=== PATIENT | female | born 1940 | race Caucasian/White ===

== ENCOUNTER 2016-09-27 09:49 | Emergency (ER) | payer MEDICARE, OTHER ==
[~2016-09-27] VITALS: Ht 160 cm; Wt 75.7 kg
[2016-09-27] MEDS ORDERED: AMLO10TA2 PO (10:12)
[2016-09-27] MEDS ORDERED: METF1000 PO (10:12)
[2016-09-27] MEDS ORDERED: LISI1TAB8 PO (10:12)
[2016-09-27] MEDS ORDERED: GLYB5TAB6 PO (10:12)
[2016-09-27] MEDS ORDERED: NS IV 500 ML 500 ML IV ONE (10:16)
[2016-09-27 10:29] LABS: BASOPHILS % (AUTO) 0 % (0-10); EOSINOPHILS # (AUTO) 0.1 10^3/uL (0.0-0.3); EOSINOPHILS % (AUTO) 1 % (0-10); LYMPHOCYTES # (AUTO) 1.7 X 10^3 (1.0-4.0); LYMPHOCYTES % (AUTO) 17 % (12-44); MEAN CORPUSCULAR HEMOGLOBIN 31 PG (25-34); MEAN CORPUSCULAR HGB CONC 34 G/DL (32-36); MEAN CORPUSCULAR VOLUME 93 FL (80-99); MEAN PLATELET VOLUME 10.5 FL (7.4-10.4); MONOCYTES # (AUTO) 0.6 X 10^3 (0.0-1.0); MONOCYTES % (AUTO) 6 % (0-12); NEUTROPHILS # (AUTO) 7.5 X 10^3 (1.8-7.8); NEUTROPHILS % (AUTO) 77 % (42-75); PLATELET COUNT 184 10^3/uL (130-400); RED BLOOD COUNT 4.17 10^6/uL (4.35-5.85); RED CELL DISTRIBUTION WIDTH 13.1 % (10.0-14.5); WHITE BLOOD COUNT 9.7 10^3/uL (4.3-11.0)
[2016-09-27] MEDS ORDERED: DEXTROSE 50% 50 ML (IMS) SYR IV ONE (10:30)
[2016-09-27 10:47] LABS: ALBUMIN 4.2 GM/DL (3.2-4.5); BILIRUBIN,TOTAL 0.4 MG/DL (0.1-1.0); CALCIUM 9.9 MG/DL (8.5-10.1); CREATININE SERUM 1.34 MG/DL (0.60-1.30); MAGNESIUM 1.9 MG/DL (1.8-2.4)
[2016-09-27 10:48] LABS: POTASSIUM 5.3 MMOL/L (3.6-5.0)
[2016-09-27 11:11] LABS: BILIRUBIN,URINE NEGATIVE (NEGATIVE); KETONES,URINE NEGATIVE (NEGATIVE); LEUKOCYTE ESTERASE ,URINE NEGATIVE (NEGATIVE); NITRITE,URINE NEGATIVE (NEGATIVE); PH,URINE 6 (5-9); PROTEIN,URINE NEGATIVE (NEGATIVE); UROBILINOGEN,URINE NORMAL (NORMAL)
--- NOTE | 2016-09-27 11:37 | ED General ---
General Chief Complaint: Dizziness/Syncope Stated Complaint: FELL,DIZZINESS Nursing Triage Note: AMBULATED TO ROOM 06 WITH ASSISTANCE SLOWLY. STATES SHE WOKE UP AT 0400 DIZZY. STATES SHE FELL HURTING HER RIGHT KNEE. WHEN SHE FELL AGAINST TWO WINDOWS LEANING UP AGAINST SOMETHING. THE WINDOWS FELL ON HER HEAD. DENIES LOC. Nursing Sepsis Screen: No Definite Risk Source of Information: Patient, EMS Exam Limitations: No Limitations History of Present Illness Time Seen by Provider: 10:07 Initial Comments This 75-year-old woman presents to the emergency room with complaints of dizziness and near syncope that started upon waking this morning. She felt fine when she went to bed at 21:30 last night. When she woke at 04:00 she felt "wobbly" as she ambulated to the bathroom. On her way back she fell to the floor. She had a minor injury to her knee and her elbow. Some windows that were leaning against the wall fell on top of her. She denies any loss of consciousness or significant head injury. She is a diabetic who takes multiple diabetic medications. She has not checked her blood sugar this morning and has not yet eaten. She denies any chest pain, shortness of air, nausea, vomiting, diarrhea, or urinary changes. Her speech was a little slurred at home but is better now. Allergies and Home Medications Allergies Coded Allergies: Penicillins (Verified Adverse Reaction, Unknown, N/V, 09/27/16) lemon (Verified Adverse Reaction, Unknown, N/V, 09/27/16) Home Medications Amlodipine Besylate 10 Mg Tablet, 10 MG PO DAILY, (Reported) Glyburide 5 Mg Tablet, 10 MG PO DAILY, (Reported) Lisinopril/Hydrochlorothiazide 1 Each Tablet, 1 EACH PO BID, (Reported) Metformin HCl 1,000 Mg Tablet, 1,000 MG PO BID, (Reported) Constitutional: weakness EENTM: see HPI Respiratory: no symptoms reported Cardiovascular: no symptoms reported Gastrointestinal: no symptoms reported Genitourinary: no symptoms reported Musculoskeletal: no symptoms reported Skin: no symptoms reported Psychiatric/Neurological: See HPI Past Lvyrvtj-Vhsnhz-Kaevbg Hx Patient Social History Alcohol Use: Denies Use Recreational Drug Use: No Smoking Status: Former Smoker Recent Foreign Travel: No Contact w/Someone Who Travel: No Recent Infectious Disease Expo: No Recent Hopitalizations: No Seasonal Allergies Seasonal Allergies: Yes Surgeries HX Surgeries: Yes (lipoma resection) Surgeries: Breast, Gallbladder Respiratory Hx Respiratory Disorders: No Cardiovascular Hx Cardiac Disorders: Yes Cardiac Disorders: Hypertension Neurological Hx Neurological Disorders: No Reproductive System : No Genitourinary Hx Genitourinary Disorders: No Gastrointestinal Hx Gastrointestinal Disorders: No Musculoskeletal Hx Musculoskeletal Disorders: No Endocrine Hx Endocrine Disorders: No Endocrine Disorders: Diabetes, Non-Insulin dep HEENT HX ENT Disorders: No Cancer Hx Cancer: Yes Cancer: Breast Psychosocial Hx Psychiatric Problems: No Integumentary HX Skin/Integumentary Disorder: No Physical Exam Vital Signs Vital Sign - Last 12Hours 09/27/16 09:53 Temp 98.0 Pulse 79 Resp 16 B/P (MAP) 164/88 Pulse Ox 98 Capillary Refill : Less Than 3 Seconds General Appearance: No Apparent Distress, WD/WN HEENT: PERRL/EOMI, Normal ENT Inspection, Pharynx Normal Neck: Normal Inspection Respiratory: Lungs Clear, Normal Breath Sounds, No Accessory Muscle Use, No Respiratory Distress Cardiovascular: Regular Rate, Rhythm, No Edema, No Murmur Gastrointestinal: Normal Bowel Sounds, Non Tender, Soft Extremity: Non Tender, Other (ecchymosis and abrasion of the right elbow without tenderness) Neurologic/Psychiatric: Alert, Oriented x3, No Motor/Sensory Deficits, Normal Mood/Affect, 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 Norm as Tested Skin: Normal Color, Warm/Dry Progress/Results/Core Measures Results/Orders Lab Results Laboratory Tests Test 09/27/16 10:15 09/27/16 10:20 09/27/16 11:00 09/27/16 11:10 Range/Units Glucometer 58 *L 116 H 70-110 MG/DL White Blood Count 9.7 4.3-11.0 10^3/uL Red Blood Count 4.17 L 4.35-5.85 10^6/uL Hemoglobin 13.0 11.5-16.0 G/DL Hematocrit 39 35-52 % Mean Corpuscular Volume 93 80-99 FL Mean Corpuscular Hemoglobin 31 25-34 PG Mean Corpuscular Hemoglobin Concent 34 32-36 G/DL Red Cell Distribution Width 13.1 10.0-14.5 % Platelet Count 184 130-400 10^3/uL Mean Platelet Volume 10.5 H 7.4-10.4 FL Neutrophils (%) (Auto) 77 H 42-75 % Lymphocytes (%) (Auto) 17 12-44 % Monocytes (%) (Auto) 6 0-12 % Eosinophils (%) (Auto) 1 0-10 % Basophils (%) (Auto) 0 0-10 % Neutrophils # (Auto) 7.5 1.8-7.8 X 10^3 Lymphocytes # (Auto) 1.7 1.0-4.0 X 10^3 Monocytes # (Auto) 0.6 0.0-1.0 X 10^3 Eosinophils # (Auto) 0.1 0.0-0.3 10^3/uL Basophils # (Auto) 0.0 0.0-0.1 10^3/uL Sodium Level 132 L 135-145 MMOL/L Potassium Level 5.3 H 3.6-5.0 MMOL/L Chloride Level 99 98-107 MMOL/L Carbon Dioxide Level 21 21-32 MMOL/L Anion Gap 12 5-14 MMOL/L Blood Urea Nitrogen 29 H 7-18 MG/DL Creatinine 1.34 H 0.60-1.30 MG/DL Estimat Glomerular Filtration Rate 38 BUN/Creatinine Ratio 22 Glucose Level 62 L 70-105 MG/DL Calcium Level 9.9 8.5-10.1 MG/DL Magnesium Level 1.9 1.8-2.4 MG/DL Total Bilirubin 0.4 0.1-1.0 MG/DL Aspartate Amino Transf (AST/SGOT) 19 5-34 U/L Alanine Aminotransferase (ALT/SGPT) 15 0-55 U/L Alkaline Phosphatase 35 L 40-136 U/L Total Protein 7.0 6.4-8.2 GM/DL Albumin 4.2 3.2-4.5 GM/DL Urine Color YELLOW Urine Clarity SLIGHTLY CLOUDY Urine pH 6 5-9 Urine Specific [place] 1.015 L 1.016-1.022 Urine Protein NEGATIVE NEGATIVE Urine Glucose (UA) NEGATIVE NEGATIVE Urine Ketones NEGATIVE NEGATIVE Urine Nitrite NEGATIVE NEGATIVE Urine Bilirubin NEGATIVE NEGATIVE Urine Urobilinogen NORMAL NORMAL MG/DL Urine Leukocyte Esterase NEGATIVE NEGATIVE Urine RBC (Auto) 1+ H NEGATIVE Urine RBC NONE /HPF Urine WBC NONE /HPF Urine Squamous Epithelial Cells 5-10 /HPF Urine Crystals NONE /LPF Urine Bacteria NEGATIVE /HPF Urine Casts NONE /LPF Urine Mucus NEGATIVE /LPF Urine Culture Indicated NO Test 09/27/16 12:08 Range/Units Glucometer 108 70-110 MG/DL My Orders Orders - ARI TEAGUE MD Cbc With Automated Diff (09/27/16 10:16) Comprehensive Metabolic Panel (09/27/16 10:16) Ua Culture If Indicated (09/27/16 10:16) Saline Lock/Iv-Start (09/27/16 10:16) Ns Iv 500 Ml (Sodium Chloride 0.9%) (09/27/16 10:16) Magnesium (09/27/16 10:16) Accucheck Stat ONCE (09/27/16 10:16) Monitor-Rhythm Ecg Trace Only (09/27/16 10:16) D50w (Emergency) Syringe (Dextrose 50% 5 (09/27/16 10:30) General/Regular (09/27/16 Lunch) Accucheck Stat ONCE (09/27/16 11:22) Medications Given in ED Current Medications Medications Dose Ordered Sig/Lena Route Start Time Stop Time Status Last Admin Dose Admin Dextrose 25 ml ONCE ONCE IV 09/27/16 10:30 09/27/16 10:31 DC 09/27/16 10:28 25 ML Sodium Chloride 500 ml @ 0 mls/hr Q0M ONCE IV 09/27/16 10:16 09/27/16 10:20 DC 09/27/16 10:30 500 MLS/HR Vital Signs/I&O Vital Sign - Last 12Hours 09/27/16 09/27/16 09:53 12:20 Temp 98.0 Pulse 79 67 Resp 16 18 B/P (MAP) 164/88 Pulse Ox 98 98 Blood Pressure Mean: 113 Point of Care Testing Finger Stick Blood Glucose: 116 Blood Glucose Action Taken: NOTIFIED Progress Note #1: Time: 11:03 Progress Note Patient is feeling significantly improved after 250 mL of normal saline and 25 g of D50. She is minimally dizzy now. She was able to ambulate to the restroom with nursing at her side. We will allow her to eat and finish her IV fluids. We will reassess blood sugar and functional status at that time to determine disposition. Creatinine is mildly elevated with no baseline to compare. Potassium is slightly elevated as well. Progress Note #2: Progress Note Patient completed her IV fluids. She ate and drank and felt much better. She requested discharge. Fingerstick blood sugar prior to dismissal was 106. Departure Impression Impression: Primary Impression: Hypoglycemia Additional Impressions: Near syncope Fall on same level Qualified Codes: W18.30XA - Fall on same level, unspecified, initial encounter Disposition: HOME, SELF-CARE Condition: Improved Departure-Patient Inst. Decision time for Depature: 12:12 Referrals: BRICE BAEZ DO (PCP) Primary Care Physician FREYA GUNN (Family) Primary Care Physician Patient Instructions: HYPOGLYCEMIA Add. Discharge Instructions: Eat 3 well-balanced meals per day. Stop glyburide until you can discuss further with your primary care provider. Continue metformin. Follow-up with your primary care provider as soon as possible. Obtain a glucometer and check your blood sugars 4 times a day, once in the morning before eating and then 2 hours after each meal. Record those blood sugars and bring them to your follow-up appointment. Return to the ER if you have worsening symptoms. All discharge instructions reviewed with patient and/or family. Voiced understanding. Copy Copies To 1: BRICE BAEZ JOSHUA T MD Sep 27, 2016 11:37
[2016-09-27 12:20] VITALS: BP 135/67
== END 2016-09-27 12:22 | disposition home or self-care (01) ==
LOC: EDUNIT# 09:49 → ER 09:53
DX: E11.649 Type 2 diabetes mellitus with hypoglycemia without coma (principal); I10 Essential (primary) hypertension; Z98.890 Other specified postprocedural states; Z87.891 Personal history of nicotine dependence; Z79.84 Long term (current) use of oral hypoglycemic drugs
CPT/HCPCS: 36415; 80053; 81000; 82962; 83735; 85025; 93041; 96374

== ENCOUNTER 2018-12-25 12:44 | Emergency (ER) | payer MEDICARE ==
[~2018-12-25] VITALS: Ht 162.5 cm; Wt 76.1 kg
[~2018-12-25 12:44] MED LIST: AMLO10TA7 PO; GLYB5TAB6 PO; LISI1TAB8 PO; METF-399 PO
--- NOTE | 2018-12-25 13:24 | NUR ---
NOTIFIED OF BUSY ER WITH LONG WAIT TIME.
--- NOTE | 2018-12-25 15:01 | NUR ---
PT FAMILY UPSET ET STATES THEY HAVE BEEN HERE THREE HOURS (PT HAS BEEN HERE TWO) AND WANTING TO KNOW WHEN SHE WILL BE BACK. NOTIFIED OF BUSY ER WITH CRITICAL PATIENTS. FAMILY QUESTIONED WHY PEOPLE HAVE BEEN BACK BROUGHT BEFORE HER. EXPLAINED THE TRIAGE PROCESS WITH THE DIFFERENCE IN FAST TRACK AND ER AND NOTIFIED HIM PT WOULD BENEFIT FROM ER. FAMILY STILL UPSET. NOTIFED HIM OF CRICITICAL PT'S IN THE ER AND SHE WOULD BE CALLED BACK SOON A NURSE IS AVIALABLE.
[2018-12-25 16:30] LABS: BILIRUBIN,URINE NEGATIVE (NEGATIVE); CLARITY,URINE SLIGHTLY CLOUDY; COLOR,URINE YELLOW; GLUCOSE, URINE (UA) NEGATIVE (NEGATIVE); KETONES,URINE NEGATIVE (NEGATIVE); LEUKOCYTE ESTERASE ,URINE NEGATIVE (NEGATIVE); NITRITE,URINE NEGATIVE (NEGATIVE); PH,URINE 8 (5-9); PROTEIN,URINE 3+ (NEGATIVE)
--- NOTE | 2018-12-25 16:32 | NUR ---
LUIS ORTIZ WITH VAGINAL EXAM AT THIS TIME
--- NOTE | 2018-12-25 16:43 | ED GU-Female ---
General Chief Complaint: LOSS PREVENTION ASSOCIATE Stated Complaint: VAGINAL BLEEDING;PAIN Nursing Triage Note: AMBULATED TO TRIAGE ET STATES SHE HAS A "MAN THING" IN HER VAGINAL AREA THAT "BUSTED" TODAY AND IS BLEEDING. Nursing Sepsis Screen: No Definite Risk History of Present Illness Date Seen by Provider: Dec 25, 2018 Time Seen by Provider: 14:00 Initial Comments 78-year-old female presents and states that she has a mass in her perineal region that she describes as a "testicle that ruptured and bled all over her bathroom." She denies having any prolapse or hemorrhoids. Symptoms of been present for approximately 2-3 weeks. She saw Darlene Gunn her COAL CONVEYOR OPERATOR approximately 2 weeks ago but did not tell her about the symptoms. Timing/Duration: intermittent Severity/Quality: moderate Location: vaginal Sexual [place] History: not active (denies sexual activity for at least 1-2 decades) Associated Symptoms: dysuria; No loss of bladder control; mass; No nausea/vomiting, No nocturia, No polyuria, No urinary frequency Allergies and Home Medications Allergies Coded Allergies: Penicillins (Verified Adverse Reaction, Unknown, N/V, 09/27/16) lemon (Verified Adverse Reaction, Unknown, N/V, 09/27/16) Home Medications Amlodipine Besylate 10 Mg Tablet, 10 MG PO DAILY, (Reported) Glyburide 5 Mg Tablet, 10 MG PO DAILY, (Reported) Lisinopril/Hydrochlorothiazide 1 Each Tablet, 1 EACH PO BID, (Reported) Metformin HCl 1,000 Mg Tablet, 1,000 MG PO BID, (Reported) Patient Home Medication List Home Medication List Reviewed: Yes Review of Systems Review of Systems Constitutional: no symptoms reported, see HPI Genitourinary: see HPI, other (mass or prolapse in perineal region. ) All Other Systemes Reviewed Negative Unless Noted: Yes Past Wiuuazw-Rrbfcp-Vdmiac Hx Past Med/Social Hx: Reviewed Nursing Past Med/Soc Hx Patient Social History Recent Foreign Travel: No Contact w/Someone Who Travel: No Recent Infectious Disease Expo: No Recent Hopitalizations: No Seasonal Allergies Seasonal Allergies: Yes Past Medical History Surgeries: Yes (LEFT BREAST MASTECTOMY, FATTY TUMOR REMOVED. ) Breast, Gallbladder Respiratory: No Cardiac: Yes Hypertension Neurological: No Genitourinary: No Gastrointestinal: No Musculoskeletal: No Endocrine: Yes Diabetes, Non-Insulin dep HEENT: No Cancer: Yes Breast Psychosocial: No Physical Exam Vital Signs Vital Signs - First Documented 12/25/18 13:24 Temp 36.3 Pulse 102 Resp 16 B/P (MAP) 188/99 (128) Pulse Ox 97 O2 Delivery Room Air Capillary Refill : Less Than 3 Seconds Height, Weight, BMI Height: 5'3.00" Weight: 167lbs. oz. 75.308149ws; 28.00 BMI Method:Stated General Appearance: WD/WN, no apparent distress Cardiovascular: normal peripheral pulses, regular rate, rhythm Respiratory: chest non-tender, lungs clear, normal breath sounds Gastrointestinal: normal bowel sounds, non tender, soft Pelvic: lesions (Friable and abnormal growth of tissue from 12-3 o'clock. No active bleeding. Trace blood in vaginal vault. No prolaps. ); No tender w/ cervical motion; vaginal bleeding Neurologic/Psychiatric: no motor/sensory deficits, alert, normal mood/affect, oriented x 3 Skin: normal color, warm/dry Progress/Results/Core Measures Suspected Sepsis Recent Fever Within 48 Hours: No Infection Criteria Present: Suspected New Infection New/Unexplained Altered Menta: No Sepsis Screen: No Definite Risk SIRS Temperature: Pulse: 102 Respiratory Rate: 16 Blood Pressure 188 /99 Mean: 128 Results/Orders Lab Results Laboratory Tests Test 12/25/18 15:53 Range/Units Urine Color YELLOW Urine Clarity SLIGHTLY CLOUDY Urine pH 8 5-9 Urine Specific [place] 1.015 L 1.016-1.022 Urine Protein 3+ H NEGATIVE Urine Glucose (UA) NEGATIVE NEGATIVE Urine Ketones NEGATIVE NEGATIVE Urine Nitrite NEGATIVE NEGATIVE Urine Bilirubin NEGATIVE NEGATIVE Urine Urobilinogen NORMAL NORMAL MG/DL Urine Leukocyte Esterase NEGATIVE NEGATIVE Urine RBC (Auto) 5+ H NEGATIVE Urine RBC 50-100 H /HPF Urine WBC NONE /HPF Urine Squamous Epithelial Cells 0-2 /HPF Urine Crystals PRESENT H /LPF Urine Triple Phosphate Crystals FEW H /LPF Urine Amorphous Sediment LARGE FLOYD PHOSPHATE H /LPF Urine Bacteria FEW H /HPF Urine Casts NONE /LPF Urine Mucus NEGATIVE /LPF Urine Culture Indicated NO My Orders Orders - WILEY ORTIZ Ua Culture If Indicated (12/25/18 16:25) Vital Signs/I&O 12/25/18 12/25/18 13:24 16:56 Temp 36.3 36.3 Pulse 102 102 Resp 16 16 B/P (MAP) 188/99 (128) 176/92 (128) Pulse Ox 97 98 O2 Delivery Room Air Room Air Capillary Refill : Less Than 3 Seconds Blood Pressure Mean: 128 POS Progress Note : Time: 14:00 Progress Note Patient seen and evaluated, will get UA. 1640 patient seen and evaluated. Discharge instructions and return precautions with her COAL CONVEYOR OPERATOR discussed at length. Departure Impression Primary Impression: Vaginal bleeding Additional Impression: Cervical dysplasia Disposition: 01 HOME, SELF-CARE Condition: Improved Departure-Patient Inst. Decision time for Depature: 16:40 Referrals: BRICE BAEZ DO (PCP) Primary Care Physician DARLENE GUNN (Family) Primary Care Physician Patient Instructions: Cervical Dysplasia (DC), Vaginal Discharge in Adults Add. Discharge Instructions: Use a pad for vaginal bleeding Follow up with Darlene Gunn APRN 8:00 am on Dec 30. You may alternate between Tylenol 650 mg and ibuprofen 600 mg every 4 hours for pain. Return to Emergency Dept, as needed for new, urgent health care problems All discharge instructions reviewed with patient and/or family. Voiced under standing. Copy Copies To 1: BRICE BAEZ AMY ARNP Dec 25, 2018 16:43 POS
[2018-12-25 16:47] LABS: AMORPHOUS SEDIMENT,UR LARGE AMOR PHOSPHATE /LPF; BACTERIA,URINE FEW /HPF; RBC,URINE 50-100 /HPF; SQUAMOUS EPITHELIAL CELL,UR 0-2 /HPF; TRIPLE PHOSPHATE CRYSTAL,UR FEW /LPF
[2018-12-25 16:56] VITALS: BP 176/92
== END 2018-12-25 16:56 | disposition home or self-care (01) ==
LOC: EDUNIT# 12:44 → ER 12:45
DX: N93.9 Abnormal uterine and vaginal bleeding, unspecified (principal); N87.9 Dysplasia of cervix uteri, unspecified; I10 Essential (primary) hypertension; E11.9 Type 2 diabetes mellitus without complications; Z85.3 Personal history of malignant neoplasm of breast; Z88.0 Allergy status to penicillin
CPT/HCPCS: 81000; 99282

== ENCOUNTER 2019-03-07 10:06 | Emergency (ER) | payer MEDICARE ==
[~2019-03-07] VITALS: Ht 160 cm; Wt 58.9 kg
[~2019-03-07 10:06] MED LIST changes: +LISI1TAB25 PO; -LISI1TAB8 PO
--- NOTE | 2019-03-07 10:49 | ED General ---
General Chief Complaint: Cardiac/General Problems Stated Complaint: HYPERTENSION Nursing Triage Note: SENT DOWN FROM THE [facility] WITH HYPERTENSION. Nursing Sepsis Screen: No Definite Risk Source of Information: Patient Exam Limitations: No Limitations History of Present Illness Date Seen by Provider: Mar 07, 2019 Time Seen by Provider: 10:30 Initial Comments The patient presents to ER by private conveyance with her granddaughter in law and grandson from the women[facility] clinic on second floor with chief complaint that her blood pressure was high at 200/100. Granddaughter says is been going on for the past several weeks that they've been getting involved in she does not take any blood pressure medicines and fired her primary care provider, Darlene Gunn when it was suggested that she needed [facility] care because she was nonadherent to therapy. The patient says she is supposed to be on glimepiride and no other medications. She has difficulty giving any clear history and uses lots of prone wound and cannot member the names of things. She does not member the name of her current provider. Her granddaughter states that she sees OPAL Jackson at [facility] now and gets her medications from a different pharmacy but the last time she had anything filled was in February 2018 and it was glimepiride. She was diagnosed with UTI over 2 weeks ago and was put on a 10 day course of antibiotics but still has over half of the course in the bottle at home. She did not find any other medications in the house today. She has a history of left mastectomy, hysterectomy and was up getting a pessary replaced today on [facility]. The patient does not endorse any chest pain dysuria shortness of breath. Family says that she walked in under her own power without any wheezing or shortness of breath. No history of lung disease. She does not smoke cigarettes. Allergies and Home Medications Allergies Coded Allergies: Penicillins (Verified Adverse Reaction, Unknown, N/V, 09/27/16) lemon (Verified Adverse Reaction, Unknown, N/V, 09/27/16) Home Medications Amlodipine Besylate 10 Mg Tablet, 10 MG PO DAILY, (Reported) Glyburide 5 Mg Tablet, 10 MG PO DAILY, (Reported) Lisinopril/Hydrochlorothiazide 1 Each Tablet, 1 EACH PO BID, (Reported) Metformin HCl 1,000 Mg Tablet, 1,000 MG PO BID, (Reported) Patient Home Medication List Home Medication List Reviewed: Yes Review of Systems Review of Systems Constitutional: No chills, No diaphoresis EENTM: No ear discharge, No ear pain Respiratory: No cough, No short of breath Cardiovascular: No chest pain, No edema Gastrointestinal: No abdominal pain, No constipation, No diarrhea, No nausea Genitourinary: No discharge, No dysuria : No Musculoskeletal: No back pain, No joint pain All Other Systems Reviewed Negative Unless Noted: Yes Past Lsztewo-Rekcey-Fuvfis Hx Patient Social History Alcohol Use: Denies Use Recreational Drug Use: No Smoking Status: Former Smoker 2nd Hand Smoke Exposure: No Recent Foreign Travel: No Contact w/Someone Who Travel: No Recent Infectious Disease Expo: No Recent Hopitalizations: No Seasonal Allergies Seasonal Allergies: Yes Past Medical History Surgeries: Yes (LEFT BREAST MASTECTOMY, FATTY TUMOR REMOVED. ) Breast, Gallbladder Respiratory: No Cardiac: Yes Hypertension Neurological: No Genitourinary: No Gastrointestinal: No Musculoskeletal: No Endocrine: Yes Diabetes, Non-Insulin dep HEENT: No Cancer: Yes Breast Psychosocial: No Integumentary: No Blood Disorders: No Physical Exam Vital Signs Vital Signs - First Documented 03/07/19 10:08 Temp 37.0 Pulse 78 Resp 16 B/P (MAP) 219/94 (135) Pulse Ox 96 O2 Delivery Room Air Capillary Refill : Less Than 3 Seconds Height, Weight, BMI Height: 5'3.00" Weight: 167lbs. oz. 75.097646gu; 23.00 BMI Method:Stated General Appearance: No Apparent Distress, Obese Eyes: Bilateral Eye Normal Inspection, Bilateral Eye PERRL, Bilateral Eye EOMI HEENT: PERRL/EOMI, TMs Normal, Normal ENT Inspection, Pharynx Normal, Moist Mucous Membranes Neck: Full Range of Motion, Normal Inspection Respiratory: Lungs Clear, Normal Breath Sounds, No Accessory Muscle Use, No Respiratory Distress Cardiovascular: Regular Rate, Rhythm, No Edema, Normal Peripheral Pulses Gastrointestinal: Normal Bowel Sounds, Non Tender, Soft Extremity: Normal Capillary Refill, Normal Inspection Neurologic/Psychiatric: Alert, Other (oriented to person place but not time. Word searching, poor short-term memory related to her medical care and name of procedures medicines.) Skin: Normal Color, Warm/Dry Progress/Results/Core Measures Suspected Sepsis Recent Fever Within 48 Hours: No Infection Criteria Present: None New/Unexplained Altered Menta: No Sepsis Screen: No Definite Risk SIRS Temperature: Pulse: 78 Respiratory Rate: 16 Laboratory Tests 03/07/19 10:45: White Blood Count 4.8 Blood Pressure 219 /94 Mean: 135 Laboratory Tests 03/07/19 10:45: Creatinine 1.44H, Platelet Count 142, Total Bilirubin 0.2 Results/Orders Lab Results Laboratory Tests Test 03/07/19 10:45 03/07/19 11:05 Range/Units White Blood Count 4.8 4.3-11.0 10^3/uL Red Blood Count 4.27 L 4.35-5.85 10^6/uL Hemoglobin 13.1 11.5-16.0 G/DL Hematocrit 40 35-52 % Mean Corpuscular Volume 94 80-99 FL Mean Corpuscular Hemoglobin 31 25-34 PG Mean Corpuscular Hemoglobin Concent 33 32-36 G/DL Red Cell Distribution Width 13.6 10.0-14.5 % Platelet Count 142 130-400 10^3/uL Mean Platelet Volume 11.4 H 7.4-10.4 FL Neutrophils (%) (Auto) 67 42-75 % Lymphocytes (%) (Auto) 24 12-44 % Monocytes (%) (Auto) 8 0-12 % Eosinophils (%) (Auto) 1 0-10 % Basophils (%) (Auto) 0 0-10 % Neutrophils # (Auto) 3.2 1.8-7.8 X 10^3 Lymphocytes # (Auto) 1.2 1.0-4.0 X 10^3 Monocytes # (Auto) 0.4 0.0-1.0 X 10^3 Eosinophils # (Auto) 0.1 0.0-0.3 10^3/uL Basophils # (Auto) 0.0 0.0-0.1 10^3/uL Sodium Level 139 135-145 MMOL/L Potassium Level 4.5 3.6-5.0 MMOL/L Chloride Level 106 98-107 MMOL/L Carbon Dioxide Level 23 21-32 MMOL/L Anion Gap 10 5-14 MMOL/L Blood Urea Nitrogen 24 H 7-18 MG/DL Creatinine 1.44 H 0.60-1.30 MG/DL Estimat Glomerular Filtration Rate 35 BUN/Creatinine Ratio 17 Glucose Level 253 H 70-105 MG/DL Calcium Level 8.9 8.5-10.1 MG/DL Corrected Calcium 9.0 8.5-10.1 MG/DL Total Bilirubin 0.2 0.1-1.0 MG/DL Aspartate Amino Transf (AST/SGOT) 16 5-34 U/L Alanine Aminotransferase (ALT/SGPT) 16 0-55 U/L Alkaline Phosphatase 58 40-136 U/L Troponin I < 0.028 <0.028 NG/ML B-Type Natriuretic Peptide 15.7 <100.0 PG/ML Total Protein 6.5 6.4-8.2 GM/DL Albumin 3.9 3.2-4.5 GM/DL Urine Color YELLOW Urine Clarity SL CLOUDY Urine pH 5.0 5-9 Urine Specific [place] 1.020 1.016-1.022 Urine Protein 2+ H NEGATIVE Urine Glucose (UA) 2+ H NEGATIVE Urine Ketones NEGATIVE NEGATIVE Urine Nitrite NEGATIVE NEGATIVE Urine Bilirubin NEGATIVE NEGATIVE Urine Urobilinogen 0.2 < = 1.0 MG/DL Urine Leukocyte Esterase NEGATIVE NEGATIVE Urine RBC (Auto) NEGATIVE NEGATIVE Urine RBC NONE /HPF Urine WBC NONE /HPF Urine Squamous Epithelial Cells 5-10 /HPF Urine Crystals NONE /LPF Urine Bacteria NEGATIVE /HPF Urine Casts NONE /LPF Urine Mucus NEGATIVE /LPF Urine Culture Indicated NO My Orders Orders - AC,CARMELO J Ekg Tracing (03/07/19 10:18) Continuous Ekg Monitoring (03/07/19 10:18) Chest 1 View, Ap/Pa Only (03/07/19 10:39) Ct Head Wo (03/07/19 10:39) Ua Culture If Indicated (03/07/19 10:39) Cbc With Automated Diff (03/07/19 10:39) Comprehensive Metabolic Panel (03/07/19 10:39) Troponin I (03/07/19 10:39) BNP (03/07/19 10:39) Vital Signs/I&O 03/07/19 10:08 Temp 37.0 Pulse 78 Resp 16 B/P (MAP) 219/94 (135) Pulse Ox 96 O2 Delivery Room Air Capillary Refill : Less Than 3 Seconds Blood Pressure Mean: 135 Progress Note #1: Time: 10:56 Progress Note Patient appears to have some modest dementia versus acute delirium. Based on the story she's telling me about her previous provider wanting her to go into convalescent care I would suspect is been going on for a while. The fact that she's not been on any medications since February with the exception of glimepiride also makes this more likely dementia than just an acute delirium however she did recently have a UTI so we'll check some labs as well as an EKG and troponin. We'll watch her blood pressure comes down on its own and if not we can give her an appropriate blood pressure medicine the slowly lower it over the next few days to weeks. Progress Note #2: Time: 11:54 Progress Note The patient is asymptomatic her blood pressure still elevated. Her labs and initial workup were unremarkable with the exception of elevated blood sugar, blood pressure and a calcified lesion in her brain. Her family is not aware of this lesion. We have instructed them to get follow-up with T[facility] Katz for MRI of the brain with and without IV contrast as well as we will start her on amlodipine 5 mg daily. We have encouraged her to continue taking her sulfonylurea for her blood sugar and follow-up with [facility] to discuss appropriate management of diabetes. The patient is not able to perform teach back in front of her family in order to demonstrate she is not able to care for herself. Family says she lives in independent living center with her son and b etween the granddaughter who is the POA and son and they will make sure that she goes to appointments and takes her medications. Previous visit she was here for vaginal bleeding and unusual appearing cervix. Family is not aware of this and does not know she's had appropriate workup. We will encourage on follow-up with primary care to explore this. ECG Initial ECG Impression Date: Mar 07, 2019 Initial ECG Impression Time: 10:22 Initial ECG Rate: 59 Initial ECG Rhythm: Normal Sinus Initial ECG Intervals: Normal Initial ECG Impression: Normal, Nonspecific Changes Comment No acute ST elevation or depression. Normal sinus rhythm Diagnostic Imaging Diagonstic Imaging: Xray Plain Films/CT/US/NM/MRI: chest (1v) Comments NAME: BRENDAN GATES [facility] REC#: [id number] PT STATUS: REG ER : 1940 PHYSICIAN: CARMELO SHEN MD ADMIT DATE: 03/07/19/ER Draft Date of Exam:03/07/19 CHEST 1 VIEW, AP/PA ONLY INDICATION: Hypertension. TECHNIQUE: Single frontal view of the chest. COMPARISON: None FINDINGS: The lung volumes are normal. No focal consolidation is seen. No large pleural effusion or pneumothorax is seen. The cardiomediastinal silhouette is normal in size and contour. No acute osseous abnormality is seen. IMPRESSION: No acute pulmonary abnormality seen. Dictated on workstation # [id number] Dict: 03/07/19 1126 Trans: 03/07/19 113 Interpreted by: CHASE NORMAN MD Electronically signed by: Reviewed: Reviewed by Me Diagonstic Imaging: CT (c/o) Plain Films/CT/US/NM/MRI: head Comments [facility] [place] NAME: BRENDAN GATES [facility] REC#: [id number] PT STATUS: REG ER : 1940 PHYSICIAN: CARMELO SHEN MD ADMIT DATE: 03/07/19/ER Draft Date of Exam:03/07/19 CT HEAD WO PROCEDURE: CT head without contrast. TECHNIQUE: Multiple contiguous axial images were obtained through the brain without the use of intravenous contrast. Auto Exposure Controls were utilized during the CT exam to meet ALARA standards for radiation dose reduction. INDICATION: Confusion. Altered mental status. COMPARISON: None. FINDINGS: Partially calcified extra-axial mass overlying the left frontal lobe measures up to 1.9 cm. No significant mass effect. No intracranial hemorrhage, hydrocephalus or extra-axial fluid collections. No CT evidence of a territorial infarction. Moderate to advanced generalized cerebral and cerebellar parenchymal volume loss. Osseous structures are intact. The visualized paranasal sinuses and mastoids are clear. IMPRESSION: 1. No acute intracranial CT findings. 2. Partially calcified extra-axial mass overlying the left frontal lobe likely represents a benign meningioma. Recommend further evaluation with nonemergent MRI without and with IV contrast. Dictated on workstation # [id number] Dict: 03/07/19 1124 Trans: 03/07/191129 Interpreted by: JESS LOUIS MD Electronically signed by: Reviewed: Reviewed by Me Departure Impression Primary Impression: Hypertension Qualified Codes: I10 - Essential (primary) hypertension Additional Impressions: Brain lesion History of vaginal bleeding History of headache Disposition: HOME, SELF-CARE Condition: Stable (ERASED) Departure-Patient Inst. Decision time for Depature: 11:56 Referrals: BRICE BAEZ DO (PCP) Primary Care Physician DARLENE GUNN (Family) Primary Care Physician Patient Instructions: Medicines for High Blood Pressure, Brain Tumor, Adult (DC) Add. Discharge Instructions: Continue taking your diabetes medications as prescribed. Start taking amlodipine 5 mg once daily and plan follow-up in the next 1-2 weeks with your primary care doctor to discuss your blood pressure. You have a lesion in your brain seen on CT scan that needs to be further characterized with an MRI. Your primary care provider can set this up for you outpatient in the next couple weeks. You should also discuss with your primary care provider whether you had appropriate workup for the vaginal bleeding and concerning cervical appearance noted in previous ER visits on 12/25/18. Communication was made with your primary care provider but since you are no longer following with Darlene Gunn this needs to be brought up with your new provider. Return to the ER if he started to have chest pain, shortness of breath or other worrisome symptoms. All discharge instructions reviewed with patient and/or family. Voiced understa nding. Scripts Amlodipine Besylate (Amlodipine Besylate) 5 Mg Tablet 5 MG PO DAILY for 30 Days, #30 TAB 0 Refills Prov: CARMELO SHEN 03/07/19 CARMELO SHEN Mar 07, 2019 10:49
--- NOTE | 2019-03-07 10:50 | NUR ---
UP TO COMMODE.
[2019-03-07 10:53] LABS: BASOPHILS % (AUTO) 0 % (0-10); EOSINOPHILS # (AUTO) 0.1 10^3/uL (0.0-0.3); EOSINOPHILS % (AUTO) 1 % (0-10); HEMATOCRIT 40 % (35-52); HEMOGLOBIN 13.1 G/DL (11.5-16.0); LYMPHOCYTES # (AUTO) 1.2 X 10^3 (1.0-4.0); LYMPHOCYTES % (AUTO) 24 % (12-44); MEAN CORPUSCULAR HEMOGLOBIN 31 PG (25-34); MEAN CORPUSCULAR HGB CONC 33 G/DL (32-36); MEAN CORPUSCULAR VOLUME 94 FL (80-99); MEAN PLATELET VOLUME 11.4 FL (7.4-10.4); MONOCYTES # (AUTO) 0.4 X 10^3 (0.0-1.0); MONOCYTES % (AUTO) 8 % (0-12); NEUTROPHILS # (AUTO) 3.2 X 10^3 (1.8-7.8); NEUTROPHILS % (AUTO) 67 % (42-75); PLATELET COUNT 142 10^3/uL (130-400); RED CELL DISTRIBUTION WIDTH 13.6 % (10.0-14.5); WHITE BLOOD COUNT 4.8 10^3/uL (4.3-11.0)
[2019-03-07 11:12] LABS: BILIRUBIN,URINE NEGATIVE (NEGATIVE); CLARITY,URINE SL CLOUDY; COLOR,URINE YELLOW; GLUCOSE, URINE (UA) 2+ (NEGATIVE); KETONES,URINE NEGATIVE (NEGATIVE); LEUKOCYTE ESTERASE ,URINE NEGATIVE (NEGATIVE); NITRITE,URINE NEGATIVE (NEGATIVE); PROTEIN,URINE 2+ (NEGATIVE)
[2019-03-07 11:12] LABS: ALANINE AMINOTRANSFERASE 16 U/L (0-55); ALBUMIN 3.9 GM/DL (3.2-4.5); ALKALINE PHOSPHATASE 58 U/L (40-136); BILIRUBIN,TOTAL 0.2 MG/DL (0.1-1.0); BUN/CREATININE RATIO 17; CALCIUM 8.9 MG/DL (8.5-10.1); CARBON DIOXIDE 23 MMOL/L (21-32); CHLORIDE 106 MMOL/L (98-107); CREATININE SERUM 1.44 MG/DL (0.60-1.30); GFR ESTIMATED 35; GLUCOSE 253 MG/DL (70-105); POTASSIUM 4.5 MMOL/L (3.6-5.0); SODIUM 139 MMOL/L (135-145); TOTAL PROTEIN 6.5 GM/DL (6.4-8.2)
[2019-03-07 11:19] LABS: BACTERIA,URINE NEGATIVE /HPF
--- NOTE | 2019-03-07 11:30 | Diagnostic Imaging Report ---
PROCEDURE: CT head without contrast. TECHNIQUE: Multiple contiguous axial images were obtained through the brain without the use of intravenous contrast. Auto Exposure Controls were utilized during the CT exam to meet ALARA standards for radiation dose reduction. INDICATION: Confusion. Altered mental status. COMPARISON: None. FINDINGS: Partially calcified extra-axial mass overlying the left frontal lobe measures up to 1.9 cm. No significant mass effect. No intracranial hemorrhage, hydrocephalus or extra-axial fluid collections. No CT evidence of a territorial infarction. Moderate to advanced generalized cerebral and cerebellar parenchymal volume loss. Osseous structures are intact. The visualized paranasal sinuses and mastoids are clear. IMPRESSION: 1. No acute intracranial CT findings. 2. Partially calcified extra-axial mass overlying the left frontal lobe likely represents a benign meningioma. Recommend further evaluation with nonemergent MRI without and with IV contrast. Dictated by: Dictated on workstation # [id number]
--- NOTE | 2019-03-07 11:31 | Diagnostic Imaging Report ---
INDICATION: Hypertension. TECHNIQUE: Single frontal view of the chest. COMPARISON: None FINDINGS: The lung volumes are normal. No focal consolidation is seen. No large pleural effusion or pneumothorax is seen. The cardiomediastinal silhouette is normal in size and contour. No acute osseous abnormality is seen. IMPRESSION: No acute pulmonary abnormality seen. Dictated by: Dictated on workstation # [id number]
[2019-03-07] MEDS ORDERED: AMLO5TAB9 PO (12:01)
[2019-03-07 12:08] VITALS: BP 236/98
== END 2019-03-07 12:08 | disposition home or self-care (01) ==
LOC: EDUNIT# 10:06 → ER 10:07
DX: I10 Essential (primary) hypertension (principal); E11.9 Type 2 diabetes mellitus without complications; G93.9 Disorder of brain, unspecified; Z85.3 Personal history of malignant neoplasm of breast; Z90.710 Acquired absence of both cervix and uterus; Z88.0 Allergy status to penicillin; Z79.84 Long term (current) use of oral hypoglycemic drugs; Z87.891 Personal history of nicotine dependence; Z87.42 Personal history of other diseases of the female genital tract; Z86.69 Personal history of other diseases of the nervous system and sense organs
CPT/HCPCS: 36415; 70450; 71045; 80053; 81000; 83880; 84484; 85025; 93005

== ENCOUNTER 2019-05-08 09:54 | Outpatient (CLI) | payer MEDICARE ==
[~2019-05-08] VITALS: Ht 160 cm; Wt 71.5 kg
[~2019-05-08 09:54] MED LIST changes: +AMLO5TAB9 PO
[2019-05-08 10:51] LABS: BASOPHILS % (AUTO) 0 % (0-10); EOSINOPHILS # (AUTO) 0.2 10^3/uL (0.0-0.3); EOSINOPHILS % (AUTO) 3 % (0-10); HEMATOCRIT 44 % (35-52); HEMOGLOBIN 14.4 G/DL (11.5-16.0); LYMPHOCYTES # (AUTO) 1.9 X 10^3 (1.0-4.0); LYMPHOCYTES % (AUTO) 32 % (12-44); MEAN CORPUSCULAR HEMOGLOBIN 30 PG (25-34); MEAN CORPUSCULAR HGB CONC 33 G/DL (32-36); MEAN CORPUSCULAR VOLUME 91 FL (80-99); MEAN PLATELET VOLUME 11.4 FL (7.4-10.4); MONOCYTES # (AUTO) 0.4 X 10^3 (0.0-1.0); MONOCYTES % (AUTO) 7 % (0-12); NEUTROPHILS # (AUTO) 3.4 X 10^3 (1.8-7.8); NEUTROPHILS % (AUTO) 58 % (42-75); PLATELET COUNT 138 10^3/uL (130-400); RED CELL DISTRIBUTION WIDTH 13.5 % (10.0-14.5); WHITE BLOOD COUNT 5.8 10^3/uL (4.3-11.0)
[2019-05-08 10:52] LABS: BILIRUBIN,URINE NEGATIVE (NEGATIVE); CLARITY,URINE CLEAR; COLOR,URINE YELLOW; GLUCOSE, URINE (UA) 1+ (NEGATIVE); KETONES,URINE NEGATIVE (NEGATIVE); LEUKOCYTE ESTERASE ,URINE 1+ (NEGATIVE); NITRITE,URINE NEGATIVE (NEGATIVE); PROTEIN,URINE 1+ (NEGATIVE)
[2019-05-08] MEDS ORDERED: HYDR25TA4 PO (11:05)
[2019-05-08] MEDS ORDERED: AMLO5TAB9 PO (11:05)
[2019-05-08 11:06] VITALS: BP 151/91
[2019-05-08 11:11] LABS: BACTERIA,URINE NEGATIVE /HPF; WBC,URINE 0-2 /HPF
== END 2019-05-08 10:50 | disposition home or self-care (01) ==
LOC: PREOP 09:54
PROVIDERS: ATTEND Obstetrics & Gynecology
DX: Z01.812 Encounter for preprocedural laboratory examination (principal); N81.9 Female genital prolapse, unspecified; N81.10 Cystocele, unspecified
CPT/HCPCS: 36415; 81000; 85025; 86850; 86900; 86901; 87081

== ENCOUNTER → 2020-05-15 | Outpatient (CLI) | payer OTHER, MEDICARE ==
[~2020-05-15] MED LIST changes: +AMLO-250 PO; +AMLO-251 PO; -AMLO10TA7 PO; -AMLO5TAB9 PO; +GLBR5T PO; -GLYB5TAB6 PO; +HYDR25TA4 PO; -LISI1TAB25 PO; +LISI1TAB46 PO
== END ==
LOC: GIR 16:13
PROVIDERS: ATTEND Internal Medicine
DX: Z01.89 Encounter for other specified special examinations (principal)
CPT/HCPCS: 84132